=== PATIENT | female | born 2000 | race Caucasian/White ===

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

== ENCOUNTER → 2021-03-10 | Outpatient (CLI) | payer OTHER ==
[2021-03-10 11:22] LABS: Appearance,Urine Cloudy (Clear); Bacteria,Urine Rare /hpf; Bilirubin,Urine Negative (Negative); Blood,Urine Negative (Negative); Color,Urine Light Yellow; Glucose,Urine (UA) Negative (Negative); Ketones,Urine Negative (Negative); Leukocyte Esterase,Urine Trace (Negative); Mucus,Urine Rare /hpf; Nitrite,Urine Negative (Negative); PH, Urine 6.5 (5.0-8.0); Protein,Urine Negative (Negative); Specific Gravity,Urine 1.005 (1.001-1.035); Squamous Epithelial Cell,Urine 5 /hpf (0-4); Urobilinogen,Urine <2.0 mg/dL (<2.0); WBC,Urine 1 /hpf (0-5)
[2021-03-10 14:44] LABS: Basophils # (A) 0.04 X 10*3/uL (0.00-0.10); Eosinophils # (A) 0.11 X 10*3/uL (0.04-0.35); Eosinophils % (A) 2.6 %; HCT 40.9 % (37.2-46.3); Lymphocytes % (A) 31.1 %; MCHC 31.8 g/dL (32.0-37.0); MCV 91.3 fL (80.0-97.0); Mean Platelet Volume 12.5 fL (9.5-12.2); Monocytes # (A) 0.39 X 10*3/uL (0.20-1.00); Monocytes % (A) 9.3 %; Neutrophils # (A) 2.33 X 10*3/uL (1.80-7.70); Neutrophils % (A) 55.8 %; Platelet Count 135 X 10*3/uL (140-440); RBC 4.48 X 10*6/uL (4.10-5.20); WBC 4.18 X 10*3/uL (4.50-10.00)
[2021-03-10 16:48] LABS: % Iron Saturation 39.63 (12.00-45.00); ALT 13 U/L (8-44); AST 20 U/L (13-35); African American GFR (CKD) 152.1 (60.0-200.0); Albumin/Globulin Ratio 1.96 (1.60-3.17); Alkaline Phosphatase 54 U/L (41-126); BUN/Creat Ratio 11.67 Ratio (12.00-20.00); C Reactive Protein <0.4 mg/dL (0.0-0.8); Calcium 9.1 mg/dL (8.7-10.3); Carbon Dioxide 23.1 mmol/L (21.6-31.8); Chloride 109 mmol/L (96-109); Chol/HDL Ratio 2.57; Cholesterol 131 mg/dL (0-200); Creatine Kinase 65 U/L (26-186); Ferritin 8.3 ng/mL (10.0-291.0); Globulin 2.3 g/dL (1.6-3.3); Glucose 84 mg/dL (70-110); HCG,Quantitative Serum 17319.5 mIU/mL; Iron 149 ug/dL (50-170); LDL Cholesterol,Calculated 68.8 mg/dL (0.0-131.0); Non-African American GFR(CKD) 131.2 (60.0-200.0); Potassium 4.3 mmol/L (3.5-5.5); Sodium 137 mmol/L (135-145); Total Bilirubin 0.7 mg/dL (0.2-1.2); Total Iron Binding Capacity 376 ug/dL (228-460); Total Protein 6.8 g/dL (6.2-8.2)
[2021-03-10 17:28] LABS: Erythrocyte Sedimentation Rate 9 mm/Hr (0-20)
[2021-03-10 17:40] LABS: Hemoglobin A1C 4.9 % (4.0-6.0)
== END | disposition home or self-care (01) ==
LOC: LABWHC1 09:41
PROVIDERS: ATTEND Internal Medicine
DX: O24.919 Unspecified diabetes mellitus in pregnancy, unspecified trimester (principal); O99.519 Diseases of the respiratory system complicating pregnancy, unspecified trimester; O26.839 Pregnancy related renal disease, unspecified trimester; O99.019 Anemia complicating pregnancy, unspecified trimester; O99.280 Endocrine, nutritional and metabolic diseases complicating pregnancy, unspecified trimester; J45.909 Unspecified asthma, uncomplicated; D64.9 Anemia, unspecified; N18.30 Chronic kidney disease, stage 3 unspecified; E78.5 Hyperlipidemia, unspecified; E03.9 Hypothyroidism, unspecified
CPT/HCPCS: 36415; 80053; 80061; 81001; 82306; 82550; 82728; 83036; 83540; 83550; 84443; 84702; 85025; 85652; 86140

== ENCOUNTER 2021-06-10 10:28 | Emergency (ER) | payer OTHER ==
[2021-06-10 10:36] VITALS: RESP 18; TEMP 98
[2021-06-10] MEDS ORDERED: SODIUM CHLORIDE 0.9% 1,000 ML IV STA (10:58)
[2021-06-10] MEDS ORDERED: ONDANSETRON 4 MG/2 ML VIAL IVP STA (10:58)
--- NOTE | 2021-06-10 11:01 | ED ---
General Adult HPI - General Chief complaint: Nausea/Vomiting/Diarrhea Stated complaint: 19wks preg, fever, congestion Time Seen by Provider: 06/10/21 10:35 Source: patient, RN notes reviewed, old records reviewed Mode of arrival: ambulatory Limitations: no limitations - History of Present Illness Initial comments: This is a 21-year-old female presents emergency department 19 weeks . Patient comes in stating yesterday she started having a sore throat and then had some congestion. Patient states that was followed by vomiting and nausea. Pat ient denies any abdominal pain. Patient denies any vaginal bleeding or discharge. Patient's any chest pain difficulty breathing shortness of breath per patient denies any fever chills. Patient denies any back pain. Patient denies any swelling to the legs or calf tenderness. - Related Data Home Medications Medication Instructions Recorded Confirmed Gge-Brat-Ispww Acid 1 cap PO DAILY 06/10/21 06/10/21 [-U Capsule (formulary)] Allergies Allergy/AdvReac Type Severity Reaction Status Date / Time spider venom Allergy Severe Swelling Verified 06/10/21 11:38 latex Allergy Rash/Hives Verified 06/10/21 11:38 [facility] Allergy Anaphylaxis Uncoded 06/10/21 11:38 Review of Systems ROS Statement: Those systems with pertinent positive or pertinent negative responses have been documented in the HPI. ROS Other: All systems not noted in ROS Statement are negative. Past Medical History Past Medical History: Pneumonia Additional Past Medical History / Comment(s): ADHD, Bipolar, Pneumonia, Sleep disorder, small bladder, small kidneys, nose bleeds. History of Any Multi-Drug Resistant Organisms: None Reported Past Surgical History: No Surgical Hx Reported Past Psychological History: ADD/ADHD, Bipolar Smoking Status: Former smoker Past Alcohol Use History: None Reported Past Drug Use History: Marijuana General Exam - General Exam Comments Initial Comments: GENERAL: Patient is well-developed and well-nourished. Patient is nontoxic and well-hydrated and is in mild distress. ENT: Neck is soft and supple. No significant lymphadenopathy is noted. Oropharynx is clear. Moist mucous membranes. Neck has full range of motion without eliciting any pain. EYES: The sclera were anicteric and conjunctiva were pink and moist. Extraocular movements were intact and pupils were equal round and reactive to light. Eyelids were unremarkable. PULMONARY: Unlabored respirations. Good breath sounds bilaterally. No audible rales rhonchi or wheezing was noted. CARDIOVASCULAR: There is a regular rate and rhythm without any murmurs gallops or rubs. ABDOMEN: Soft and nontender with normal bowel sounds. Patient has a gravid abdomen SKIN: Skin is clear with no lesions or rashes and otherwise unremarkable. NEUROLOGIC: Patient is alert and oriented x3. Cranial nerves II through XII are grossly intact. Motor and sensory are also intact. Normal speech, volume and content. Symmetrical smile. MUSCULOSKELETAL: Normal extremities with adequate strength and full range of motion. No lower extremity swelling or edema. No calf tenderness. LYMPHATICS: No significant lymphadenopathy is noted PSYCHIATRIC: Normal psychiatric evaluation. Limitations: no limitations Course Vital Signs 06/10/21 06/10/21 06/10/21 10:33 11:36 12:00 Temperature 98 F 98 F Pulse Rate 76 86 Respiratory 18 18 18 Rate Blood Pressure 121/78 116/69 O2 Sat by Pulse 98 99 Oximetry Medical Decision Making - Medical Decision Making I will back into the room to reevaluate the patient she was feeling much better was not vomiting at this point time. Patient was comfortable going home with discharge the patient with some Zofran and she will follow-up as needed. - Lab Data Result diagrams: 06/10/21 11:10 06/10/21 11:10 Lab Results 06/10/21 06/10/21 06/10/21 Range/Units 11:10 11:10 11:10 WBC 8.6 (4.0-11.0) k/uL RBC 4.38 (3.80-5.40) m/uL Hgb 13.5 (11.4-16.0) gm/dL Hct 40.6 (34.0-46.0) % MCV 92.6 (80.0-100.0) fL MCH 30.7 (25.0-35.0) pg MCHC 33.2 (31.0-37.0) g/dL RDW 13.5 (11.5-15.5) % Plt Count 119 L (150-450) k/uL MPV 9.8 Neutrophils % 83 % Lymphocytes % 8 % Monocytes % 7 % Eosinophils % 1 % Basophils % 0 % Neutrophils # 7.1 (1.3-7.7) k/uL Lymphocytes # 0.7 L (1.0-4.8) k/uL Monocytes # 0.6 (0-1.0) k/uL Eosinophils # 0.1 (0-0.7) k/uL Basophils # 0.0 (0-0.2) k/uL Sodium 136 L (137-145) mmol/L Potassium 4.1 (3.5-5.1) mmol/L Chloride 105 (98-107) mmol/L Carbon Dioxide 23 (22-30) mmol/L Anion Gap 8 mmol/L BUN 3 L (7-17) mg/dL Creatinine 0.50 L (0.52-1.04) mg/dL Est GFR (CKD-EPI)AfAm >90 (>60 ml/min/1.73 sqM) Est GFR (CKD-EPI)NonAf >90 (>60 ml/min/1.73 sqM) Glucose 84 (74-99) mg/dL Calcium 9.4 (8.4-10.2) mg/dL Total Bilirubin 0.4 (0.2-1.3) mg/dL AST 21 (14-36) U/L ALT 12 (4-34) U/L Alkaline Phosphatase 69 (38-126) U/L Total Protein 7.0 (6.3-8.2) g/dL Albumin 4.0 (3.5-5.0) g/dL Amylase 64 (30-110) U/L Lipase 103 (23-300) U/L Urine Color Yellow Urine Appearance Cloudy H (Clear) Urine pH 7.5 (5.0-8.0) Ur Specific [place] 1.016 (1.001-1.035) Urine Protein Trace H (Negative) Urine Glucose (UA) Negative (Negative) Urine Ketones 2+ H (Negative) Urine Blood Negative (Negative) Urine Nitrite Negative (Negative) Urine Bilirubin Negative (Negative) Urine Urobilinogen <2.0 (<2.0) mg/dL Ur Leukocyte Esterase Small H (Negative) Urine RBC 2 (0-5) /hpf Urine WBC 2 (0-5) /hpf Ur Squamous Epith Cells 76 H (0-4) /hpf Amorphous Sediment Rare H (None) /hpf Urine Mucus Few H (None) /hpf Coronavirus (PCR) (Not Detectd) Group A Strep Rapid (Negative) 06/10/21 06/10/21 Range/Units 11:10 11:10 WBC (4.0-11.0) k/uL RBC (3.80-5.40) m/uL Hgb (11.4-16.0) gm/dL Hct (34.0-46.0) % MCV (80.0-100.0) fL MCH (25.0-35.0) pg MCHC (31.0-37.0) g/dL RDW (11.5-15.5) % Plt Count (150-450) k/uL MPV Neutrophils % % Lymphocytes % % Monocytes % % Eosinophils % % Basophils % % Neutrophils # (1.3-7.7) k/uL Lymphocytes # (1.0-4.8) k/uL Monocytes # (0-1.0) k/uL Eosinophils # (0-0.7) k/uL Basophils # (0-0.2) k/uL Sodium (137-145) mmol/L Potassium (3.5-5.1) mmol/L Chloride (98-107) mmol/L Carbon Dioxide (22-30) mmol/L Anion Gap mmol/L BUN (7-17) mg/dL Creatinine (0.52-1.04) mg/dL Est GFR (CKD-EPI)AfAm (>60 ml/min/1.73 sqM) Est GFR (CKD-EPI)NonAf (>60 ml/min/1.73 sqM) Glucose (74-99) mg/dL Calcium (8.4-10.2) mg/dL Total Bilirubin (0.2-1.3) mg/dL AST (14-36) U/L ALT (4-34) U/L Alkaline Phosphatase (38-126) U/L Total Protein (6.3-8.2) g/dL Albumin (3.5-5.0) g/dL Amylase (30-110) U/L Lipase (23-300) U/L Urine Color Urine Appearance (Clear) Urine pH (5.0-8.0) Ur Specific [place] (1.001-1.035) Urine Protein (Negative) Urine Glucose (UA) (Negative) Urine Ketones (Negative) Urine Blood (Negative) Urine Nitrite (Negative) Urine Bilirubin (Negative) Urine Urobilinogen (<2.0) mg/dL Ur Leukocyte Esterase (Negative) Urine RBC (0-5) /hpf Urine WBC (0-5) /hpf Ur Squamous Epith Cells (0-4) /hpf Amorphous Sediment (None) /hpf Urine Mucus (None) /hpf Coronavirus (PCR) Not Detected (Not Detectd) Group A Strep Rapid Negative (Negative) Disposition Clinical Impression: Acute vomiting, Upper respiratory infection Disposition: HOME SELF-CARE Instructions (If sedation given, give patient instructions): Acute Nausea and Vomiting (ED), Upper Respiratory Infection (ED) Is patient prescribed a controlled substance at d/c from ED?: No Referrals: Hasmukh Barcenas MD [Primary Care Provider] - 1-2 days Time of Disposition: 13:04
[2021-06-10 11:25] LABS: Amorphous Sediment,Urine Rare /hpf; Appearance,Urine Cloudy (Clear); Bilirubin,Urine Negative (Negative); Blood,Urine Negative (Negative); Color,Urine Yellow; Glucose,Urine (UA) Negative (Negative); Ketones,Urine 2+ (Negative); Leukocyte Esterase,Urine Small (Negative); Mucus,Urine Few /hpf; Nitrite,Urine Negative (Negative); PH, Urine 7.5 (5.0-8.0); Protein,Urine Trace (Negative); RBC,Urine 2 /hpf (0-5); Specific Gravity,Urine 1.016 (1.001-1.035); Squamous Epithelial Cell,Urine 76 /hpf (0-4); Urobilinogen,Urine <2.0 mg/dL (<2.0); WBC,Urine 2 /hpf (0-5)
[2021-06-10 11:33] LABS: Basophils % (A) 0 %; Eosinophils # (A) 0.1 k/uL (0-0.7); Eosinophils % (A) 1 %; HCT 40.6 % (34.0-46.0); HGB 13.5 gm/dL (11.4-16.0); Lymphocytes # (A) 0.7 k/uL (1.0-4.8); Lymphocytes % (A) 8 %; MCH 30.7 pg (25.0-35.0); MCHC 33.2 g/dL (31.0-37.0); MCV 92.6 fL (80.0-100.0); Mean Platelet Volume 9.8; Monocytes # (A) 0.6 k/uL (0-1.0); Monocytes % (A) 7 %; Neutrophils # (A) 7.1 k/uL (1.3-7.7); Neutrophils % (A) 83 %; Platelet Count 119 k/uL (150-450); RBC 4.38 m/uL (3.80-5.40); RDW 13.5 % (11.5-15.5); WBC 8.6 k/uL (4.0-11.0)
[2021-06-10 11:39] LABS: ALT 12 U/L (4-34); AST 21 U/L (14-36); African American GFR (CKD) >90 (>60 ml/min/1.73 sqM); Alkaline Phosphatase 69 U/L (38-126); Amylase 64 U/L (30-110); Anion Gap 8 mmol/L; Blood Urea Nitrogen 3 mg/dL (7-17); Calcium 9.4 mg/dL (8.4-10.2); Carbon Dioxide 23 mmol/L (22-30); Chloride 105 mmol/L (98-107); Glucose 84 mg/dL (74-99); Lipase 103 U/L (23-300); Non-African American GFR(CKD) >90 (>60 ml/min/1.73 sqM); Potassium 4.1 mmol/L (3.5-5.1); Sodium 136 mmol/L (137-145); Total Bilirubin 0.4 mg/dL (0.2-1.3)
[2021-06-10 12:19] VITALS: BP 116/69
[2021-06-10 13:18] VITALS: PULSE 81
== END 2021-06-10 13:23 | disposition home or self-care (01) ==
LOC: EC 10:28
DX: O21.9 Vomiting of pregnancy, unspecified (principal); O99.512 Diseases of the respiratory system complicating pregnancy, second trimester; J06.9 Acute upper respiratory infection, unspecified; F31.9 Bipolar disorder, unspecified; F12.90 Cannabis use, unspecified, uncomplicated; Z3A.19 19 weeks gestation of pregnancy; Z91.040 Latex allergy status; Z87.891 Personal history of nicotine dependence; Z20.822 Contact with and (suspected) exposure to COVID-19
CPT/HCPCS: 99284; 96374; 96361; 36415; 80053; 82150; 83690; 85025; 81001; 87081; 87430; 87635; J2405

== ENCOUNTER → 2021-10-14 | Outpatient (CLI) | payer OTHER ==
[2021-10-15 00:16] VITALS: BP 129/83; PULSE 75; RESP 16; TEMP 98.4
--- NOTE | 2021-10-15 11:22 | P.MSEPDOC ---
Presenting Problems - Arrival Data Date of Arrival on Unit: 10/14/21 Time of Arrival on Unit: 13:24 Mode of Transport: Wheelchair - Complaint OB-Reason for Admission/Chief Complaint: Possible Onset of Labor Comment: frequent uterine irriatability noted with 3 actual contractions seen since. admit. 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 states has had contractions since intercourse Medical History - Information : 1 Para: 0 Term: 0 : 0 Abortions: Spontaneous or Elective: 0 Number of Living Children: 0 - Gestational Age Gestational Age by DEEPA (wks/days): 37 Weeks and 5 Days Review of Systems - Review of Systems Constitutional: No problems Breast: No problems ENT: No problems Cardiovascular: No problems Respiratory: No problems Gastrointestinal: No problems Genitourinary: No problems Musculoskeletal: No problems Neurological: No problems Skin: No problems Vital Signs - Temperature Temperature: 98.4 F Temperature Source: Oral - Pulse Right Pulse Rate: 75 Pulse Assessment Method: Automatic Cuff - Respirations Respiratory Rate: 16 Oxygen Delivery Method: Room Air O2 Sat by Pulse Oximetry: 98 - Blood Pressure Right Arm Blood Pressure: 129/83 Blood Pressure Mean: 98 Blood Pressure Source: Automatic Cuff Medical Screen Scoring - Cervical Exam Dilation (cm): 1 Effacement (%): 50 Station: -3 Membranes: Intact - Uterine Contractions Frequency From (mins): 5 Frequency To (mins): 10 Duration From (seconds): 60 Duration To (seconds): 90 Intensity: Mild Resting: Soft to palpation - Assessment - Baby A Baseline FHR: 125 Heart Rate - NICHD Category: Category I (Normal) NST: Reactive Physician Notification - Physician Notified Physician Notified Date: 10/14/21 Physician Notified Time: 15:30 Physician: Nba Michele Order Received: Yes - Notification Comment Comment: discharge Maternal Triage Index - Maternal Triage Index Presenting for scheduled procedure w/no complaint: No - Stat/Priority 1 Stat Priority 1: No - Urgent/Priority 2 Urgent Priority 2: No - Prompt/Priority 3 Prompt Priority 3: No - Non-Urgent/Priority 4 Non-Urgent Priority 4: Yes Criteria Met for Priority 4: Dr Michele called with pts reason for visit. baby cat 1 wtih reactive NST. pts. complaints of contractions since 5 am after intercourse. Went right to work after having. sex where she stands to work. contractions mostly irriatable with some organized ctx. activity that she has to breathe thru. cervix 1 cm 50%. Orders to recheck cervix 60-90. min after first exam and may discharge if not changed. call if changed. notifvani we. needGBS result if stays Disposition - Disposition OB Disposition: Discharge to home Discharge Date: 10/14/21 Discharge Time: 15:45 I agree with the RN Medical Screening Exam: Yes Case reviewed; plan agreed upon as documented in EMR&OBIX.: Yes Diagnosis: FALSE LABOR AT OR AFTER 37 COMPLETED WEEKS OF GESTATION
== END ==
LOC: FBPOP 13:17
PROVIDERS: ATTEND Obstetrics & Gynecology
DX: O47.1 False labor at or after 37 completed weeks of gestation (principal); O99.333 Smoking (tobacco) complicating pregnancy, third trimester; F17.200 Nicotine dependence, unspecified, uncomplicated; Z3A.37 37 weeks gestation of pregnancy; Z91.040 Latex allergy status; Z91.038 Other insect allergy status; Z91.09 Other allergy status, other than to drugs and biological substances
CPT/HCPCS: 59025; G0463; 99213

== ENCOUNTER 2021-10-31 06:30 | Inpatient (IN) | payer OTHER ==
[2021-10-31] MEDS ORDERED: TERBUTALINE 1 MG/ML VIAL SQ PRN (06:59)
[2021-10-31] MEDS ORDERED: OXYTOCIN 10 UNIT/ML 1 ML VIAL IM PRN (06:59)
[2021-10-31] MEDS ORDERED: METHYLERGONOVINE 0.2 MG/ML 1 ML AMP IM PRN (06:59)
[2021-10-31] MEDS ORDERED: CARBOPROST TROMETHAMINE 250 MCG/ML 1 ML AMP IM PRN (06:59)
[2021-10-31] MEDS ORDERED: AMPICILLIN 2,000 MG in SODIUM CHLORIDE 0.9% 100 ML IVPB STA (06:59)
[2021-10-31] MEDS ORDERED: LIDOCAINE 1% (PF) 10 MG/ML (30 ML SDV) SQ PRN (06:59)
[2021-10-31] MEDS ORDERED: OXYTOCIN 30 UNITS/500 ML NS 30 UNIT in SALINE 1 500ML.BAG IV SCH (07:00)
[2021-10-31] MEDS: LACTATED RINGERS 1,000 ML IV SCH ×4 (07:20→17:31)
[2021-10-31 07:47] LABS: Basophils % (A) 0 %; Eosinophils # (A) 0.1 k/uL (0-0.7); Eosinophils % (A) 1 %; HCT 42.2 % (34.0-46.0); HGB 14.1 gm/dL (11.4-16.0); Lymphocytes # (A) 1.2 k/uL (1.0-4.8); Lymphocytes % (A) 15 %; MCH 30.8 pg (25.0-35.0); MCHC 33.5 g/dL (31.0-37.0); Mean Platelet Volume 10.5; Monocytes # (A) 0.4 k/uL (0-1.0); Monocytes % (A) 5 %; Neutrophils # (A) 5.9 k/uL (1.3-7.7); Neutrophils % (A) 77 %; Platelet Count 129 k/uL (150-450); RBC 4.59 m/uL (3.80-5.40); RDW 12.4 % (11.5-15.5); WBC 7.7 k/uL (4.0-11.0)
[2021-10-31 08:10] LABS: Cocaine Screen,Urine Not Detected (NotDetected); Phencyclidine Screen,Urine Not Detected (NotDetected); Urn Cannabinoid Scrn Detected (NotDetected)
[2021-10-31 08:11] LABS: Amphetamine Screen,Urine Not Detected (NotDetected); Barbiturate Screen,Urine Not Detected (NotDetected); Benzodiazepines Screen,Urine Not Detected (NotDetected); Methadone Screen, Urine Not Detected (NotDetected); Opiate Screen,Urine Not Detected (NotDetected); Oxycodone Screen, Urine Not Detected (NotDetected); Tricyclic Antidepressant,Urine Not Detected (NotDetected)
[2021-10-31] MEDS ORDERED: BUTORPHANOL 1 MG/ML 1 ML VIAL IV PRN (08:15)
[2021-10-31] MEDS ORDERED: ROPIVACAINE 5MG/ML 20ML VIAL ONE (09:29)
[2021-10-31] MEDS ORDERED: fentaNYL (PF) 50 MCG/ML 5 ML AMP ONE (09:29)
[2021-10-31] MEDS ORDERED: SODIUM CHLORIDE 0.9% 100 ML BAG ONE ×2 (09:29→14:45)
[2021-10-31] MEDS ORDERED: ROPIVACAINE 100 MG, fentaNYL (PF). 200 MCG in SODIUM CHLORIDE 0.9% 76 ML EPIDURAL ONE (10:43)
[2021-10-31] MEDS: AMPICILLIN 1,000 MG in SODIUM CHLORIDE 0.9% 50 ML IVPB SCH ×2 (11:30→17:32)
[2021-10-31] MEDS ORDERED: CITRIC ACID-SODIUM CITRATE 15 ML CUP PO ONE (14:30)
[2021-10-31] MEDS ORDERED: ONDANSETRON 4 MG/2 ML VIAL ONE (14:45)
[2021-10-31] MEDS ORDERED: ceFAZolin 1,000 MG VIAL ONE (14:45)
[2021-10-31] MEDS ORDERED: KETOROLAC 15 MG/ML 1 ML VIAL ONE (14:45)
[2021-10-31] MEDS ORDERED: MIDAZOLAM 2 MG/2 ML VIAL ONE (14:45)
[2021-10-31] MEDS ORDERED: MORPHINE SULFATE (PF) 0.3 MG/0.3 ML SYR ONE (14:45)
[2021-10-31] MEDS ORDERED: ONDANSETRON 4 MG/2 ML VIAL IVP PRN (16:52)
[2021-10-31] MEDS ORDERED: METOCLOPRAMIDE 5 MG/ML 2 ML VIAL IVP PRN (16:52)
[2021-10-31] MEDS ORDERED: diphenhydrAMINE 25 MG CAP PO PRN (16:52)
[2021-10-31] MEDS ORDERED: diphenhydrAMINE 50 MG/ML 1 ML VIAL IVP PRN ×2 (16:52)
[2021-10-31] MEDS ORDERED: MEASLES-MUMPS-RUBELLA VACC/PF 12,500 UNIT/0.5 ML VIAL SQ ONE (16:52)
[2021-10-31] MEDS ORDERED: ZOLPIDEM 5 MG TAB PO PRN (16:52)
[2021-10-31] MEDS ORDERED: diphenhydrAMINE 50 MG CAP PO PRN (16:52)
[2021-10-31] MEDS ORDERED: NALOXONE 0.4 MG/ML 1 ML VIAL IV PRN (16:52)
--- NOTE | 2021-10-31 16:56 | P.HPOB ---
History of Present Illness H&P Date: 10/31/21 Chief Complaint: Intrauterine at term: Induction of labor Patient is a 21-year-old at 40 weeks gestation arise for induction of labor. Her course had been, complicated by polyhydramnios that was noted early at about 32 weeks with borderline polyhydramnios and by 36 week she actually was polyhydramnios. Reports titers weren't. Repeat ultrasound at 38 weeks showed resolution of polyhydramnios with an SHAVONNE of 18. She is scheduled for an induction of labor. She is dilated to 1-2 cm 80% effaced -2 station. Artificial rupture membranes was performed and clear fluid is noted. She plans to use epidural for analgesia. All questions are answered for her at this time. A category 1 tracing is noted.. She is groupie strep positive. Pertinent labs include A+ blood type, Rh and it was negative, rubella is nonimmune, hepatitis be surface antigen and HIV and RPR all negative. Past Medical History Past Medical History: Pneumonia Additional Past Medical History / Comment(s): ADHD, Bipolar. History of Any Multi-Drug Resistant Organisms: None Reported Past Surgical History: No Surgical Hx Reported Past Anesthesia/Blood Transfusion Reactions: No Reported Reaction Past Psychological History: ADD/ADHD, Bipolar Smoking Status: Former smoker Past Alcohol Use History: None Reported Past Drug Use History: Marijuana - Past Family History Mother Family Medical History: No Reported History Medications and Allergies Home Medications Medication Instructions Recorded Confirmed Type Onz-Nelu-Gznof Acid 1 cap PO DAILY 06/10/21 10/31/21 History [-U Capsule (formulary)] Allergies Allergy/AdvReac Type Severity Reaction Status Date / Time spider venom Allergy Severe Swelling Verified 10/14/21 14:10 coconut Allergy Rash/Hives Verified 10/31/21 06:58 latex Allergy Rash/Hives Verified 10/31/21 06:58 Exam Osteopathic Statement: *. No significant issues noted on an osteopathic structural exam other than those noted in the History and Physical/Consult. Vital Signs Temp Pulse Resp BP Pulse Ox 10/31/21 16:30 97.7 F 75 18 132/65 97 10/31/21 16:15 81 135/77 10/31/21 16:00 98.5 F 89 18 129/77 98 10/31/21 15:45 98.8 F 80 18 148/73 95 10/31/21 15:30 97.8 F 98 18 137/72 96 10/31/21 06:55 97.0 F L 86 16 126/83 Intake and Output 10/31/21 10/31/21 10/31/21 06:59 14:59 22:59 Output Total 500 Balance -500 Output: Output, Quantitative 500 Blood Loss Other: Weight 84.822 kg - OBG Physical Exam Breast: both: normal (no masses) Abdomen: bowel sounds normal, no diffuse tenderness, no bruit present, no guarding noted, no hepatomegaly, no splenomegaly, no mass Vulva: both: normal Vagina: normal moisture, no discharge Cervix: no lesion, no discharge Uterus: normal size, normal contour Adnexa: both: normal Anus/Rectum: normal perianal skin, no rectal mass, no hemorrhoids, heme negative Results Result Diagrams: 10/31/21 07:19 Abnormal Lab Results - Last 24 Hours (Table) 10/31/21 10/31/21 Range/Units 07:19 07:20 Plt Count 129 L (150-450) k/uL U Marijuana (THC) Screen Detected H (NotDetected)
--- NOTE | 2021-10-31 17:00 | P.OP ---
Date of Procedure: 10/31/21 Preoperative Diagnosis: Intrauterine at term: Nonreassuring heart tones: Remote from delivery Postoperative Diagnosis: Same Procedure(s) Performed: Primary low transverse section Anesthesia: epidural Surgeon: Nba Michele [employer] Sales Consultant #1: Latonia Strickland Estimated Blood Loss (ml): 400 IV fluids (ml): 600 Urine output (ml): 200 Pathology: other (Placenta) Condition: stable Disposition: floor Operative Findings: During the course of labor, Pitocin augmentation of labor had been attempted but following the Pitocin the baby began having decelerations. She had several deep variables with late component and also had at least 2 decelerations into the 60s lasting for 4-5 minutes with the patient just laying in bed. Oxygen was tried and position change was affected but overall ultimately with repetitive decelerations like this a decision with her that remote from delivery and with her not really karishma that well due to the fact that Pitocin augmentation had to be stopped, a section was effected. Description of Procedure: Patient was taken to the operating suite where a epidural anesthetic was found be adequate. She was prepped and draped in the normal sterile fashion and placed in the dorsal supine position with leftward tilt. Initially a Pfannenstiel skin incision was made and this incision was then carried through to underlying layer of the fascia was second knife. Fascia was then nicked in the midline and this opening was extended laterally with Sheikh scissors. Superior and inferior aspect of this incision were then grasped tented up and bluntly and sharply dissected off the rectus muscles. Rectus muscles were then divided midline and blunt dissection to the peritoneum was performed. This opening was then extended superiorly and inferiorly with good visualization of both bowel bladder. Bladder blade was then placed in the bladder flap identified. It was entered sharply with Metzenbaum scissors carried across face the uterus and then bluntly dissected out of the operative field. Knife was then used to incise uterus this opening was fully developed with hemostat and then extended bluntly. Head was then atraumatically delivered and mouth nares were bulb suctioned. Anterior posterior shoulders were then easily delivered followed by the remainder the baby. Nursery personnel was present to assume care and the umbilical cord was clamped cut usual fashion. Placenta was then delivered intact Pitocin was added to the IV. Uterus was then exteriorized cleared of clots and debris and closed in 2 layers with 0 Vicryl suture. Once excellent hemostasis was obtained blood and debris was suctioned posterior cul-de-sac and the uterus was reinserted into the abdomen. Gutters were then cleared. Reinspection the incision reveals hemostasis. Hernia layer was then closed with 3-0 Vicryl. Fascia was closed with 0 Vicryl suture. One layer of 3-0 Vicryl placed in the deep subcuticular to care tissues to reapproximate the skin and close space. Skin was then closed with 3-0 Vicryl subcuticularly. Sponge, lap, needle counts were all correct 2. Patient was then taken to the recovery room in stable and satisfactory condition.
[2021-10-31] MEDS: ACETAMINOPHEN TAB 325 MG TAB PO PRN ×2 (17:31→23:17)
[2021-10-31] MEDS: SENNOSIDES-DOCUSATE SODIUM 1 EACH TAB PO SCH (21:46)
[2021-11-01] MEDS ORDERED: KETOROLAC 30 MG/ML 1 ML VIAL IVP SCH
[2021-11-01] MEDS: IBUPROFEN 600 MG TAB PO PRN ×3 (04:16→23:00)
[2021-11-01] MEDS: LACTATED RINGERS 1,000 ML IV SCH (06:56)
[2021-11-01 07:25] LABS: Basophils % (A) 0 %; Eosinophils # (A) 0.1 k/uL (0-0.7); Eosinophils % (A) 1 %; HCT 37.3 % (34.0-46.0); HGB 12.5 gm/dL (11.4-16.0); Lymphocytes # (A) 0.8 k/uL (1.0-4.8); Lymphocytes % (A) 8 %; MCH 31.4 pg (25.0-35.0); MCHC 33.5 g/dL (31.0-37.0); MCV 93.7 fL (80.0-100.0); Mean Platelet Volume 10.8; Monocytes # (A) 0.4 k/uL (0-1.0); Monocytes % (A) 4 %; Neutrophils # (A) 8.9 k/uL (1.3-7.7); Neutrophils % (A) 87 %; Platelet Count 109 k/uL (150-450); RBC 3.98 m/uL (3.80-5.40); RDW 12.4 % (11.5-15.5); WBC 10.2 k/uL (4.0-11.0)
--- NOTE | 2021-11-01 07:25 | P.PN ---
Progress Note - Text Progress Note Date: 11/01/21 (795) Anesthesia Postop day 1 Subjective: Status Post section with Duramorph. Patient seen and examined. Doing well without complaint. VAS 1 out of 10. Denies nausea vomiting or pruritus.. Afebrile. Gross lower extremity strength intact. Without apparent anesthetic complications. Objective: Vital signs reviewed Heart: Regular Rate Lungs: Good chest excursion Abdomen: Appears nondistended Assessment: Status post with Duramorph postop day 1 Plan: Continue current care with your medical management. Anticipated change in pain needs this morning as we approach time yesterday. Instructions given all questions answered. This note was dictated using [employer] software. Please be advised there is a potential for misspellings or errors in supervisor blast furnace auxiliaries.
[2021-11-01] MEDS: ACETAMINOPHEN TAB 325 MG TAB PO PRN ×2 (08:16→17:58)
[2021-11-01] MEDS: SENNOSIDES-DOCUSATE SODIUM 1 EACH TAB PO SCH (08:17)
--- NOTE | 2021-11-01 13:14 | P.PNOBGPC ---
Subjective - Subjective Principal diagnosis: Postop day 1 Interval history: Patient is doing very well this afternoon. She is involuting, voiding and tolerating her diet. She voices no complaints and her pain is well-controlled. We'll plan continue care for now. Patient reports: Reports appetite normal, Reports voiding normally, Reports pain well controlled, Reports ambulating normally : doing well Objective - Vital Signs Latest vital signs: Vital Signs Temp Pulse Resp BP BP Pulse Ox 11/01/21 12:00 99.0 F 63 15 125/82 11/01/21 07:46 97.5 F L 62 14 129/80 11/01/21 04:00 97.5 F L 67 16 128/82 98 10/31/21 23:34 97.8 F 73 16 129/80 98 10/31/21 20:00 97.8 F 68 16 126/76 96 10/31/21 17:30 97.1 F L 68 18 134/85 97 10/31/21 17:00 66 137/81 97 10/31/21 16:30 97.7 F 75 18 132/65 97 10/31/21 16:15 81 135/77 10/31/21 16:00 98.5 F 89 18 129/77 98 10/31/21 15:45 98.8 F 80 18 148/73 95 10/31/21 15:30 97.8 F 98 18 137/72 96 Intake and Output 10/31/21 11/01/21 11/01/21 22:59 06:59 14:59 Intake Total 16.3 Output Total 900 1500 Balance -883.7 -1500 Intake: Intake, IV Titration 16.3 Amount Oxytocin 30 Units/500 ml 16.3 Ns 30 unit In Saline 1 500ml.bag @ Per Protocol IV .Q0M [facility] Rx#:[id number] Output: Urine 400 1500 Uretheral (Acevedo) 500 Output, Quantitative 500 Blood Loss Other: # Voids 1 1 # Bowel Movements 0 - Exam Lungs: bilateral: normal Chest: Normal S1, Normal S2 Extremities: Present: normal Abdomen: Present: normal appearance, soft. Absent: distention, tenderness Incision: Present: normal, dry, intact Uterus: Present: normal, firm - Labs Labs: Abnormal Lab Results - Last 24 Hours (Table) 11/01/21 Range/Units 06:50 Plt Count 109 L (150-450) k/uL Neutrophils # 8.9 H (1.3-7.7) k/uL Lymphocytes # 0.8 L (1.0-4.8) k/uL
[2021-11-01] MEDS ORDERED: HYDROmorphone 2 MG TAB PO PRN (13:15)
[2021-11-02] MEDS: SENNOSIDES-DOCUSATE SODIUM 1 EACH TAB PO SCH ×2 (01:30→11:15)
[2021-11-02] MEDS: IBUPROFEN 600 MG TAB PO PRN (05:27)
[2021-11-02 08:44] VITALS: TEMP 98
--- NOTE | 2021-11-02 09:14 | P.DS ---
Providers Date of admission: 10/31/21 06:31 Expected date of discharge: 11/02/21 Attending physician: Nba Michele Primary care physician: Stated None Hospital Course: Patient is doing very well postop day 2. She is involuting, voiding and tolerating her diet. She voices no complaint. Vital signs are stable and afebrile. Heart regular, lungs clear, extremities without pain. Abdomen is soft and bowel sounds are noted. Her incision is clean dry and intact. Uterus is firm below the umbilicus and lochia is reported to be light. Assessment postop day 2. Plan discharged home follow up with Dr. Oates in 1 week. Discharge instructions are otherwise thoroughly reviewed and all questions were answered for her prior to her discharge. Prescription for Motrin and [place] forceps the pharmacy and she is stable for discharge this time. Patient Condition at Discharge: Good Plan - Discharge Summary New Discharge Prescriptions: New HYDROcodone/APAP 5-325MG [[place] 5-325] 1 tab PO Q4HR PRN #20 tab PRN Reason: Pain Ibuprofen [Motrin] 600 mg PO Q6HR PRN #30 tab PRN Reason: Pain No Action Nky-Euiz-Pqqxh Acid [-U Capsule (formulary)] 1 cap PO DAILY Discharge Medication List Fwr-Jeag-Gstha Acid [-U Capsule (formulary)] 1 cap PO DAILY 06/10/21 [History] HYDROcodone/APAP 5-325MG [[place] 5-325] 1 tab PO Q4HR PRN #20 tab 11/02/21 [Rx] Ibuprofen [Motrin] 600 mg PO Q6HR PRN #30 tab 11/02/21 [Rx] Follow up Appointment(s)/Referral(s): Lila Oates DO [Doctor of Osteopathic Medicine] - 1 Week Activity/Diet/Wound Care/Special Instructions: Heavy lifting, limit stairs and driving, and pelvic rest. If any high temperatures, heavy bleeding, or severe pain call my office. No tub baths for 2 weeks but showering is fine. Discharge Disposition: HOME SELF-CARE
[2021-11-02] MEDS: ACETAMINOPHEN TAB 325 MG TAB PO PRN (11:13)
[2021-11-02 11:51] VITALS: BP 131/81; PULSE 84; RESP 17
== END 2021-11-02 12:35 | disposition home or self-care (01) | DRG 788 ==
LOC: 4FBP 06:31
PROVIDERS: ADMIT Obstetrics & Gynecology; ATTEND Obstetrics & Gynecology
PROC: 10D00Z1 Extraction of Products of Conception, Low, Open Approach (ICD-10-PCS; principal; 2021-10-31 14:40)
DX: O76 Abnormality in fetal heart rate and rhythm complicating labor and delivery (principal); Z3A.40 40 weeks gestation of pregnancy; Z37.0 Single live birth; Z87.891 Personal history of nicotine dependence; Z91.040 Latex allergy status
CPT/HCPCS: 80306; 85025; 86850; 86900; 86901; 88307; 90707

== ENCOUNTER 2022-07-24 07:59 | Emergency (ER) | payer OTHER ==
[2022-07-24 08:13] VITALS: TEMP 98
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
[2022-07-24 09:09] VITALS: BP 114/74; PULSE 102; RESP 18
== END 2022-07-24 09:22 | disposition home or self-care (01) ==
LOC: EC 07:59
DX: S90.02XA Contusion of left ankle, initial encounter (principal); S20.212A Contusion of left front wall of thorax, initial encounter; F31.9 Bipolar disorder, unspecified; F17.290 Nicotine dependence, other tobacco product, uncomplicated; F12.90 Cannabis use, unspecified, uncomplicated; Z91.038 Other insect allergy status; Z91.018 Allergy to other foods; Z91.040 Latex allergy status; Z79.899 Other long term (current) drug therapy; V18.0XXA Pedal cycle driver injured in noncollision transport accident in nontraffic accident, initial encounter
CPT/HCPCS: 99284

== ENCOUNTER → 2024-05-27 | Outpatient (CLI) | payer BC ==
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
[2024-05-28 02:23] LABS: Basophils # (A) 0.06 X 10*3/uL (0.00-0.10); Basophils % (A) 1.1 %; Eosinophils # (A) 0.18 X 10*3/uL (0.04-0.35); Eosinophils % (A) 3.2 %; HCT 40.9 % (37.2-46.3); HGB 13.3 g/dL (12.0-15.0); Lymphocytes # (A) 1.98 X 10*3/uL (0.90-5.00); Lymphocytes % (A) 35.6 %; MCH 29.7 pg (27.0-32.0); MCHC 32.5 g/dL (32.0-37.0); MCV 91.3 FL (80.0-97.0); Mean Platelet Volume 12.5 FL (9.5-12.2); Monocytes # (A) 0.47 X 10*3/uL (0.20-1.00); Monocytes % (A) 8.5 %; NRBC Per 100 WBC 0 X 10*3/uL (0.00-0.01); Neutrophils # (A) 2.86 X 10*3/uL (1.80-7.70); Neutrophils % (A) 51.4 %; Platelet Count 182 X 10*3/uL (140-440); RBC 4.48 X 10*6/uL (4.10-5.20); RDW 12.2 % (11.5-14.5); WBC 5.56 X 10*3/uL (4.50-10.00)
[2024-05-28 02:38] LABS: Appearance,Urine Turbid (Clear); Bilirubin,Urine Negative (Negative); Blood,Urine Negative (Negative); Color,Urine Yellow (Yellow); Ketones,Urine Negative (Negative); Nitrite,Urine Negative (Negative); PH, Urine 5.5; Specific Gravity,Urine 1.031 (1.001-1.030); Urobilinogen,Urine 0.2
[2024-05-28 02:46] LABS: Erythrocyte Sedimentation Rate 9 mm/Hr (0-20)
[2024-05-28 02:53] LABS: Hepatitis A Antibody IgM Nonreactive (Nonreactive); Hepatitis B Core IgM Nonreactive (Nonreactive); Hepatitis B Surface Antigen Nonreactive (Nonreactive); Hepatitis C IgG Antibody Nonreactive (Nonreactive)
[2024-05-28 03:03] LABS: ALT 18 U/L (8-44); AST 19 U/L (13-35); Albumin 4.4 g/dL (3.8-4.9); Albumin/Globulin Ratio 1.91 Ratio (1.60-3.17); Alkaline Phosphatase 49 U/L (41-126); BUN/Creat Ratio 13.25 Ratio (12.00-20.00); Blood Urea Nitrogen 10.6 mg/dL (9.0-27.0); Calcium 9.5 mg/dL (8.7-10.3); Carbon Dioxide 23.7 mmol/L (21.6-31.8); Chloride 107 mmol/L (96-109); Creatine Kinase 56 U/L (26-186); Globulin 2.3 g/dL (1.6-3.3); Glucose 81 mg/dL (70-110); Magnesium 1.8 mg/dL (1.5-2.4); Potassium 3.9 mmol/L (3.5-5.5); Sodium 141 mmol/L (135-145); Total Bilirubin 0.3 mg/dL (0.3-1.2); Total Protein 6.7 g/dL (6.2-8.2); Uric Acid 3.5 mg/dL (2.9-7.7)
[2024-05-28 04:07] LABS: Bacteria,Urine 2+ (None Seen); Calcium Oxalate Crystals,Urine Present (None Seen); Uric Acid Crystals,Urine Present
[2024-05-28 05:16] LABS: Anti-DNA, DS unit <1.0 IU/mL; DNA Double-Stranded Negative (Negative)
== END | disposition home or self-care (01) ==
LOC: RADXRMAIN 15:47
PROVIDERS: ATTEND Internal Medicine
DX: M43.6 Torticollis (principal)
CPT/HCPCS: 72050; 72072; 80053; 80074; 81001; 82306; 82550; 83735; 84550; 85025; 85652; 86038; 86225; 87086

== ENCOUNTER → 2025-01-13 | Outpatient (CLI) | payer BC ==
--- NOTE | 2025-01-14 09:56 | CA ---
Transthoracic Echo Report Name: Melissa Myers Age: 24 Gender: F : 2000 Exam Date: 01/13/2025 13:24 Exam Location: [facility] Ht (in): 68 Wt (lb): 135 Ordering Physician: Hasmukh Barcenas MD Attending/Referring Phys: Hasmukh Barcenas MD [employer]ctor Renetta Jarquin, [facility] Procedure CPT: Indications: I34.1 NONRHEUMATIC MITRAL (VALVE) PROLAPSE Cardiac Hx: Technical Quality: Good Contrast 1: Total Dose (mL): Contrast 2: Total Dose (mL): MEASUREMENTS (Male / Female) Normal Values 2D ECHO LV Diastolic Diameter PLAX 4.1 cm 4.2 - 5.9 / 3.9 - 5.3 cm LV Systolic Diameter PLAX 2.7 cm IVS Diastolic Thickness 0.9 cm 0.6 - 1.0 / 0.6 - 0.9 cm LVPW Diastolic Thickness 1.0 cm 0.6 - 1.0 / 0.6 - 0.9 cm LV Relative Wall Thickness 0.4 RV Internal Dim ED PLAX 2.4 cm LVOT Diameter 2.1 cm LV Diastolic Volume MOD BP 53.1 cm??? 67 - 155 / 56 - 104 cm??? LV Systolic Volume MOD BP 31.1 cm??? 22 - 58 / 19 - 49 cm??? LV Ejection Fraction MOD BP 41.4 % >= 55 % LV Cardiac Index MOD BP 1014.6 cm???/min???m??? LV Diastolic Volume MOD 4C 57.7 cm??? LV Systolic Volume MOD 4C 24.1 cm??? LV Ejection Fraction MOD 4C 58.3 % LV Cardiac Index MOD 4C 1556.1 cm???/min???m??? LV Diastolic Length 4C 6.7 cm LV Systolic Length 4C 6.2 cm LV Diastolic Volume MOD 2C 47.2 cm??? LV Systolic Volume MOD 2C 31.9 cm??? LV Ejection Fraction MOD 2C 32.5 % LV Cardiac Index MOD 2C 708.7 cm???/min???m??? LV Diastolic Length 2C 6.9 cm LV Systolic Length 2C 6.5 cm M-MODE Aortic Root Diameter MM 3.1 cm DOPPLER AV Peak Velocity 106.8 cm/s AV Peak Gradient 4.6 mmHg AV Mean Velocity 74.4 cm/s AV Mean Gradient 2.5 mmHg AV Velocity Time Integral 18.2 cm LVOT Peak Velocity 90.9 cm/s LVOT Peak Gradient 3.3 mmHg LVOT Velocity Time Integral 16.7 cm LVOT Stroke Volume 55.6 cm??? LVOT Stroke Volume Index 32.2 ml/m??? LVOT Cardiac Index 2570.9 cm???/min???m??? AV Area Cont Eq vti 3.1 cm??? AV Area Cont Eq pk 2.8 cm??? MV Area PHT 2.5 cm??? Mitral E Point Velocity 65.4 cm/s Mitral A Point Velocity 75.4 cm/s Mitral E to A Ratio 0.9 MV Deceleration Time 298.9 ms TR Peak Velocity 204.6 cm/s TR Peak Gradient 16.7 mmHg Right Ventricular Systolic Press 21.3 mmHg PV Peak Velocity 71.7 cm/s PV Peak Gradient 2.1 mmHg FINDINGS Left Ventricle Left ventricular ejection fraction is estimated at 55-60%. Normal Left ventricular size, wall thickness, systolic function with no obvious regional wall motion abnormalities. Normal Left ventricular diastolic filling pattern. Right Ventricle Normal right ventricular size and function. Right ventricular systolic pressure within normal limits. Right Atrium Normal right atrial size. Left Atrium Normal left atrial size. Mitral Valve Structurally normal mitral valve. Trace mitral regurgitation. No mitral stenosis. Aortic Valve Trileaflet aortic valve. No aortic valve stenosis or regurgitation. Tricuspid Valve Structurally normal tricuspid valve. No tricuspid stenosis. Mild tricuspid regurgitation. Pulmonic Valve Structurally normal pulmonic valve. Trace pulmonic regurgitation. No pulmonic stenosis. Pericardium No pericardial or pleural effusion. Aorta Normal size aortic root and proximal ascending aorta. CONCLUSIONS Normal LV size and systolic function. Minimal mitral and tricuspid regurgitation. No pericardial effusion. No pulmonary hypertension. Previewed by: Dr. Deejay Diane MD (Electronically Signed) Final Date: 14 Jan 2025 09:55
== END | disposition home or self-care (01) ==
LOC: RADECHMAIN 13:16
PROVIDERS: ATTEND Internal Medicine
DX: I08.1 Rheumatic disorders of both mitral and tricuspid valves (principal)
CPT/HCPCS: 93306